=== PATIENT | male | born 2000 | race Caucasian/White ===

== ENCOUNTER 2023-11-30 17:06 | Emergency (ER) | payer OTHER ==
[~2023-11-30] VITALS: Ht 198.1 cm; Wt 91.0 kg
[2023-11-30 17:10] VITALS: BP 121/75; PULSE 98; RESP 16; TEMP 97.5; O2SAT 100
== END 2023-11-30 20:59 | disposition left against medical advice (07) ==
LOC: ER 17:06
DX: R10.9 Unspecified abdominal pain (principal); Z53.21 Procedure and treatment not carried out due to patient leaving prior to being seen by health care provider
CPT/HCPCS: 99281

== ENCOUNTER 2024-09-24 07:04 | Emergency (ER) | payer OTHER ==
[~2024-09-24] VITALS: Ht 190.5 cm; Wt 91.0 kg
[2024-09-24 07:22] VITALS: O2SAT 98
[2024-09-24 08:28] LABS: BASOPHILS % 0.8 % (0.0-2.0); EOSINOPHILS % 1.5 % (0.0-5.0); HEMATOCRIT. 39.1 % (42.0-52.0); HEMOGLOBIN. 13.5 g/dL (14.0-18.0); LYMPHOCYTES % 10.1 % (20.0-50.0); MEAN CORPUSCULAR HEMOGLOBIN 32.6 pg (28.0-32.0); MEAN CORPUSCULAR HGB CONC 34.5 g/dL (31.0-37.0); MEAN CORPUSCULAR VOLUME 94.3 fL (80.0-94.0); MEAN PLATELET VOLUME 8.6 fl (7.4-10.4); MONOCYTES % 9.3 % (2.0-8.0); NEUTROPHILS % 78.3 % (40.0-76.0); PLATELET 327 x1000/uL (130-400); RED BLOOD CELL COUNT 4.14 mill/uL (4.7-6.1); WHITE BLOOD COUNT 11.1 x1000/uL (4.5-11.0)
[2024-09-24 08:41] LABS: CARBON DIOXIDE 25 mEq/L (21-32); CHLORIDE 109 mEq/L (98-107); POTASSIUM 3.6 mEq/L (3.5-5.1); SODIUM 142 mEq/L (136-145)
[2024-09-24 08:42] LABS: CALCIUM 9.2 mg/dL (8.7-10.4)
[2024-09-24 08:47] LABS: GLUCOSE 116 mg/dL (70-105); UREA NITROGEN BLOOD 13 mg/dL (9-23)
[2024-09-24 08:47] LABS: CLARITY URINE CLEAR (CLEAR); COLOR URINE YELLOW (YELLOW); GLUCOSE URINE NEGATIVE (NEGATIVE); KETONES URINE NEGATIVE (NEGATIVE); LEUKOCYTE ESTERASE URINE NEGATIVE (NEGATIVE); NITRITE URINE NEGATIVE (NEGATIVE); OCCULT BLOOD URINE NEGATIVE (NEGATIVE); PH URINE 8.5 (4.5-8.0); PROTEIN URINE NEGATIVE (NEGATIVE); SPECIFIC GRAVITY URINE 1.012 (1.005-1.030)
[2024-09-24] MEDS: OLANZAPINE 10 MG/VIAL IM STA (08:48)
[2024-09-24 09:07] LABS: ETHANOL BLOOD < 10 mg/dL (<10)
[2024-09-24 09:19] LABS: *AMPHETAMINES SCREEN URINE NEGATIVE (NEGATIVE); *BARBITURATES SCREEN URINE NEGATIVE (NEGATIVE); *BENZODIAZEPINES SCREEN URINE NEGATIVE (NEGATIVE); *COCAINE SCREEN URINE NEGATIVE (NEGATIVE); METHADONE URINE SCREEN NEGATIVE (NEGATIVE); OPIATES URINE SCREEN NEGATIVE (NEGATIVE); PHENCYCLIDINE URINE SCREEN NEGATIVE (NEGATIVE)
[2024-09-24 09:20] LABS: CANNABINOID URINE SCREEN PRESUMPTIVE POSITIVE (NEGATIVE); ECSTASY MDMA SCREEN URINE NEGATIVE (NEGATIVE)
[2024-09-24 09:37] VITALS: BP 134/81; PULSE 107; RESP 20; O2SAT 100
[2024-09-24] MEDS: LORAZEPAM 2MG/ML INJ IM ONE (09:37)
== END 2024-09-24 15:30 | disposition left against medical advice (07) ==
LOC: ER 07:24
DX: R45.851 Suicidal ideations (principal); J45.909 Unspecified asthma, uncomplicated; F14.90 Cocaine use, unspecified, uncomplicated; Z79.899 Other long term (current) drug therapy
CPT/HCPCS: 80305; 80048; 81003; 80320; 85025; 36415; 96372; 99284; J3490; J2060; Z7610; A4606; G0480